=== PATIENT | female | born 1925 | race Caucasian/White ===

== ENCOUNTER 2016-11-15 11:01 | Inpatient (IN) | payer OTHER, MEDICAID ==
[~2016-11-15] VITALS: Ht 149.9 cm; Wt 56.7 kg
[~2016-11-15 11:01] MED LIST: AMLO5TAB4 PO; BUDE6HFA INH; FURO20TA4 PO; LISI-186 PO; METO25TA6 PO; WARF4TAB40 PO
[2016-11-15] MEDS ORDERED: ACETAMINOPHEN 325MG TABLET PO STA (11:42)
[2016-11-15] MEDS ORDERED: PIPERACILLIN/TAZ 3.375G PREMIX 50 ML IV ONE (11:45)
[2016-11-15] MEDS ORDERED: SODIUM CHLORIDE 0.9% 1000ML BAG (SEPSIS BOLUS) IV ONE (11:45)
[2016-11-15 12:27] LABS: BASOPHILS % 0.2 % (0.0-2.0); EOSINOPHILS % 0.1 % (0.0-5.0); HEMATOCRIT. 37.8 % (36.0-48.0); HEMOGLOBIN. 13.6 g/dL (12.0-16.0); LYMPHOCYTES % 8.1 % (20.0-50.0); MEAN CORPUSCULAR HEMOGLOBIN 30.7 pg (28.0-32.0); MEAN CORPUSCULAR VOLUME 85.4 fL (81.0-99.0); MEAN PLATELET VOLUME 8.2 fl (7.4-10.4); MONOCYTES % 5.8 % (2.0-8.0); NEUTROPHILS % 85.8 % (40.0-76.0); PLATELET 183 x1000/uL (130-400); RED BLOOD CELL COUNT 4.42 mill/uL (4.2-5.4); RED CELL DISTRIBUTION WIDTH 13.8 % (11.6-14.6)
[2016-11-15 12:36] LABS: INR 1.9; PROTHROMBIN TIME 19.8 sec (9.4-11.6)
[2016-11-15 12:44] LABS: CARBON DIOXIDE 27 mEq/L (21-32); CHLORIDE 99 mEq/L (98-107); TROPONIN I < 0.02 ng/mL (0.00-0.04)
[2016-11-15 13:22] LABS: GLUCOSE URINE NEGATIVE (NEGATIVE); KETONES URINE NEGATIVE (NEGATIVE); LEUKOCYTE ESTERASE URINE NEGATIVE (NEGATIVE); NITRITE URINE NEGATIVE (NEGATIVE); OCCULT BLOOD URINE 1+ (NEGATIVE); PROTEIN URINE 1+ (NEGATIVE)
[2016-11-15] MEDS ORDERED: FUROSEMIDE 20MG TABLET PO ONE (13:30)
[2016-11-15 13:37] LABS: CLARITY URINE CLEAR (CLEAR); COLOR URINE YELLOW (YELLOW)
[2016-11-15 20:10] VITALS: BP 128/72
[2016-11-15 20:40] VITALS: BP 128/72
[2016-11-15] MEDS ORDERED: ONDANSETRON HCL 4MG/2ML VIAL IV PRN (21:00)
[2016-11-15] MEDS ORDERED: DIPHENHYDRAMINE 50MG/ML VIAL IV PRN (21:00)
[2016-11-15] MEDS ORDERED: IPRATROPIUM/ALBUTEROL 0.5-3(2.5)MG/3ML NEB INH PRN (21:00)
[2016-11-15] MEDS ORDERED: CLONIDINE 0.1MG TABLET PO PRN (21:00)
[2016-11-15] MEDS ORDERED: WARFARIN SODIUM 4MG TABLET PO NR (21:30)
[2016-11-15] MEDS: CEFTRIAXONE 1 G PREMIX 50 ML IV SCH (22:07)
[2016-11-15] MEDS ORDERED: DEXT 5%/0.45% NACL KCL 10MEQ/L 1,000 ML IV NR (22:30)
[2016-11-16] MEDS: ACETAMINOPHEN 325MG TABLET PO PRN ×2 (00:28→16:30)
[2016-11-16 00:30] VITALS: BP 114/57
[2016-11-16] MEDS: IPRATROPIUM/ALBUTEROL 0.5-3(2.5)MG/3ML NEB HHN SCH ×4 (02:00→20:08)
[2016-11-16 04:00] VITALS: BP 114/53
[2016-11-16 06:53] LABS: PROTHROMBIN TIME 21.4 sec (9.4-11.6)
[2016-11-16 08:00] VITALS: BP 125/45
[2016-11-16] MEDS: BUDESONIDE 0.5MG/2ML NEB HHN SCH ×2 (08:20→20:04)
[2016-11-16] MEDS: METOPROLOL TARTRATE 25MG TABLET PO SCH ×2 (09:31→20:31)
[2016-11-16 12:00] VITALS: BP 144/79
[2016-11-16 16:00] VITALS: BP 122/68
[2016-11-16] MEDS ORDERED: WARFARIN SODIUM 4MG TABLET PO SCH (18:00)
[2016-11-16 20:05] VITALS: BP 102/58
[2016-11-16] MEDS: CEFTRIAXONE 1 G PREMIX 50 ML IV SCH (22:38)
[2016-11-17 00:18] VITALS: BP 106/63
[2016-11-17] MEDS: IPRATROPIUM/ALBUTEROL 0.5-3(2.5)MG/3ML NEB HHN SCH ×3 (00:27→14:30)
[2016-11-17 04:00] VITALS: BP 117/77
[2016-11-17 07:00] LABS: HEMATOCRIT 35.4 % (36.0-48.0); HEMOGLOBIN 12.2 g/dL (12.0-16.0); MEAN CORPUSCULAR HEMOGLOBIN 29.4 pg (28.0-32.0); MEAN CORPUSCULAR VOLUME 85.2 fL (81.0-99.0); PLATELET 196 x1000/uL (130-400); RED BLOOD CELL COUNT 4.15 mill/uL (4.2-5.4); RED CELL DISTRIBUTION WIDTH 13.9 % (11.6-14.6)
[2016-11-17 08:00] VITALS: BP 124/54
[2016-11-17] MEDS: BUDESONIDE 0.5MG/2ML NEB HHN SCH (08:37)
[2016-11-17] MEDS: METOPROLOL TARTRATE 25MG TABLET PO SCH (08:56)
[2016-11-17 10:08] LABS: INR 2.5; PROTHROMBIN TIME 25.7 sec (9.4-11.6)
[2016-11-17 12:00] VITALS: BP 130/76
[2016-11-17 16:00] VITALS: BP 128/66
[2016-11-17 17:05] VITALS: BP 127/67
[2016-11-17] MEDS ORDERED: WARFARIN SODIUM 3MG TABLET PO SCH (18:00)
== END 2016-11-17 18:47 | disposition home or self-care (01) | DRG 249 ==
LOC: ER 13:28 → 8WST 14:34 → EDBEDREQ 14:44 → EDBEDREQSVC 14:44 → ENRESERV 18:48
PROVIDERS: ADMIT Internal Medicine; ATTEND Internal Medicine
DX: A08.4 Viral intestinal infection, unspecified (principal); I11.0 Hypertensive heart disease with heart failure; I48.2 Chronic atrial fibrillation; I50.9 Heart failure, unspecified; K52.9 Noninfective gastroenteritis and colitis, unspecified; E78.00 Pure hypercholesterolemia, unspecified; Z90.49 Acquired absence of other specified parts of digestive tract; Z79.899 Other long term (current) drug therapy; Z90.710 Acquired absence of both cervix and uterus; Z91.81 History of falling; Z87.01 Personal history of pneumonia (recurrent); E83.51 Hypocalcemia
CPT/HCPCS: 36415; 51702; 71010; 74176; 80053; 81001; 83605; 83880; 84484; 85025; 85027; 85610; 87040; 87086; 87804; 93005; 94640; 96365; 99285; J0696; J2543; J7030; J7620; J7626; A4315